=== PATIENT | female | born 1985 | race Caucasian/White ===

== ENCOUNTER 2018-04-19 19:20 | Emergency (ER) | payer OTHER ==
[2018-04-19 19:31] VITALS: BP 118/81; PULSE 91; RESP 16; TEMP 98.5; O2SAT 100
[2018-04-19 21:15] LABS: SQUAMOUS EPITHIAL 1 /hpf (0-5); URINE BILIRUBIN NEGATIVE (NEGATIVE); URINE BLOOD NEGATIVE (NEGATIVE); URINE CLARITY CLEAR (Clear); URINE COLOR STRAW (YELLOW); URINE GLUCOSE (UA) NEG (Normal); URINE LEUKOCYTE ESTERASE TRACE Leu/uL (Negative); URINE PROTEIN NEGATIVE (NEGATIVE); URINE UROBILINOGEN 0.2-1.0 mg/dL (0.2-1.0)
--- NOTE | 2018-04-19 21:15 | ED PDOC ---
HPI: Female Pain Time Seen by Provider: 04/19/18 20:19 Chief Complaint (Nursing): Female Genitourinary Chief Complaint (Provider): pelvic pain History Per: Patient History/Exam Limitations: no limitations Onset/Duration Of Symptoms: Hrs Current Symptoms Are (Timing): Better Severity: Severe Quality Of Discomfort: Cramping Associated Symptoms: denies: Fever, Chills Alleviating Factors: None Additional Complaint(s): 33 y/o Female at 19 weeks with hx of subclinical hypothyroidism on Synthroid since who presents with acute lower pelvic/abdominal pain that occurred a couple of hours ago while walking home from work. She has been having round ligament pain and states that this is much worse and different than that pain. States that is was a little cramp and intermittent. STates dysuria a couple of days ago but none now. Denies vaginal bleeding, abnormal vaginal discharge, N/V, diarrhea. Abnormal Vaginal Bleeding: No Past Medical History Reviewed: Historical Data, Nursing Documentation, Vital Signs Vital Signs: Last Vital Signs Temp 98.5 F 04/19/18 19:30 Pulse 91 H 04/19/18 19:30 Resp 16 04/19/18 19:30 BP 118/81 04/19/18 19:30 Pulse Ox 100 04/19/18 19:30 - Family History Family History: States: Unknown Family Hx - Social History Current smoker - smoking cessation education provided: No - Allergies Allergies/Adverse Reactions: Allergies Allergy/AdvReac Type Severity Reaction Status Date / Time Penicillins Allergy URTICARIA Verified 04/19/18 20:59 Sulfa (Sulfonamide Allergy unknown Verified 04/19/18 20:58 Antibiotics) Review of Systems ROS Statement: Except As Marked, All Systems Reviewed And Found Negative Constitutional: Negative for: Fever, Chills, Sweats Genitourinary Female: Positive for: Dysuria, Pelvic Pain. Negative for: Frequency, Vaginal Discharge, Vaginal Bleeding Physical Exam - Reviewed Nursing Documentation Reviewed: Yes Vital Signs Reviewed: Yes - Physical Exam Appears: Positive for: Uncomfortable Skin: Positive for: Normal Color Neck: Positive for: Supple Cardiovascular/Chest: Positive for: Regular Rate, Rhythm Respiratory: Positive for: Normal Breath Sounds Gastrointestinal/Abdominal: Positive for: Tenderness (suprapubic). Negative for: Guarding, Rebound Pelvic Exam: Positive for: Other (patient refused stating that she would like PATCH SANDER to examine her) Neurologic/Psych: Positive for: Alert, Oriented - ECG O2 Sat by Pulse Oximetry: 100 Medical Decision Making Medical Decision Making: spooler consulted: requesting that patient be sent up to be evaluated in OB for heart monitoring and for contractions. No pelvic exam indicated at this time. Urine dip: small LE U/A and urine culture ordered Patient discharged to present to OB floor for evaluation. Disposition - Clinical Impression Clinical Impression: Pelvic pain during in second trimester, antepartum - Patient ED Disposition Is Patient to be Admitted: No Discussed With DrAlexis: Briseida Gusman Doctor Will See Patient In The: Office Counseled Patient/Family Regarding: Need For Followup - Disposition Disposition: Routine/Home Disposition Time: 21:15 Condition: STABLE Additional Instructions: F/u with PATCH SANDER immediately after discharge for further evaluation of pelvic pain. Forms: [employer] (Lithuanian)
--- NOTE | 2018-04-19 21:59 | OBHP ---
Datetime: 04/19/2018 21:55 IP Adm Impression: , intrauterine IP Chief Complaint Other: lower abdominal pain IP Admit Plan: Observation/Evaluation; Discharge home Admit Comment, IP Provider: Pt is a @ 19+ wks, presents with history of sharp lower abdominal p ain today, no vaginal bleeding, no leaking, some dysuria 2-3 days prior. Patient reported that she mondragon d the sharp pain on both sides of the abdomen, migrated to the lower pelvic region, patient no longer feels the sharp discomfort. Patient denies fever, N/V, diarrhea, any other sick signs/symptoms. Hailey ent on exam has very mild lower abdominal discomfort to deep palpation. UA negative, VSS, no contract ions on the monitor and no signs of chorio. Patient most likely has round ligament pain, discussed di scharge and precautions with patient Pelvic Type - PN: Adequate Extremities - PN: Normal Abdomen - PN: Normal Back - PN: Normal Breast - PN: Normal Lungs - PN: Normal Heart - PN: Normal Thyroid - PN: Normal Neurologic - PN: Normal HEENT - PN: Normal General - PN: Normal FHR - Baseline A Provider: 140s Vital Signs Provider: Reviewed; Within Normal Limits Genitourinary Exam: Normal DTRs - PN: Normal
--- NOTE | 2018-04-19 22:02 | OBDCSUM ---
Datetime: 04/19/2018 21:58 Discharged to, Provider: Home Follow up at, Provider: OB Follow up in weeks, Provider: 3 wks Discharge Diagnosis Prov Other: round ligament pain
== END 2018-04-19 22:30 | disposition home or self-care (01) ==
LOC: H.ER 19:20 → H.EROB2 19:20 → H.ER 21:16 → H.L&D 21:27 → H.EROB2 22:30
DX: O26.92 Pregnancy related conditions, unspecified, second trimester (principal); R10.2 Pelvic and perineal pain; Z3A.19 19 weeks gestation of pregnancy

== ENCOUNTER 2018-09-03 03:43 | Inpatient (IN) | payer OTHER ==
[2018-09-03 05:58] VITALS: BMI 30.9
[2018-09-03] MEDS ORDERED: Lactated Ringer's 1,000 ML IV ONE (06:03)
[2018-09-03 06:14] VITALS: RESP 20
[2018-09-03 06:38] LABS: BASO % 0.3 % (0.0-2.0); EOS # 0.1 K/uL (0.0-0.7); EOS % 0.5 % (0.0-4.0); HEMOGLOBIN 13.6 g/dL (12.0-16.0); LYMPH % 16.4 % (20.0-40.0); MEAN CELL VOLUME 81.4 fl (81.0-99.0); MEAN CORPUSCULAR HEMOGLOBIN 26.9 pg (27.0-31.0); MEAN PLATELET VOLUME 8.9 fl (7.2-11.7); MONO # 0.8 K/uL (0.0-0.8); MONO % 6.3 % (0.0-10.0); NEUT # 9.5 K/uL (1.8-7.0); NEUT % 76.5 % (50.0-75.0); RBC 5.05 Mil/uL (3.80-5.20); RED CELL DISTRIBUTION WIDTH 12.9 % (11.5-14.5); WHITE BLOOD COUNT 12.4 K/uL (4.8-10.8)
--- NOTE | 2018-09-03 14:23 | OBPN ---
Datetime: 09/03/2018 14:20 IP Progress Impression: Rupture of membranes IP Procedures: Sterile Vag Exam IP Progress Plan: Induction Membranes, Provider: Ruptured Amniotic Fluid Color, Provider: Clear FHR - Baseline A Provider: 130's IP Progress Note Comment: 33 yo G1 at 39+ 2 wks w/ spontaneous rupture of membranes FHT reassuring. GBS negaitve Pt may eat regular lunch and then will start pitocin NICHD Accel Fetus A IP Provider: 15X15 FHR Category Provider Fetus A: Category I NICHD Variability Prov Fetus A: Moderate 6-25bpm Dilatation, Provider: 2 Effacement, Provider: 80 Station, Provider: -2 NICHD Decel Fetus A IP Provider: None Datetime: 04/19/2018 21:55 Vital Signs Provider: Reviewed; Within Normal Limits
[2018-09-03] MEDS ORDERED: Oxytocin 30 UNIT in NS 500 ml 30 UNITS/500 ML BAG IV ONE (16:25)
[2018-09-03] MEDS: Lactated Ringer's 1,000 ML IV SCH (17:24)
[2018-09-03] MEDS ORDERED: Bupivacaine HCl 0.5% PF (30 ml) Inj ONE (20:43)
[2018-09-03] MEDS ORDERED: Fentanyl/Bupivacaine HCl 250 ML EPI ONE (20:44)
[2018-09-04] MEDS: Lactated Ringer's 1,000 ML IV SCH ×5 (00:27→19:30)
[2018-09-04] MEDS ORDERED: Oxytocin 30 UNIT in NS 500 ml 30 UNITS/500 ML BAG IV ONE ×3 (09:31→10:58)
--- NOTE | 2018-09-04 10:21 | OBPN ---
Datetime: 09/04/2018 10:00 IP Progress Impression: Reassuring heart rate IP Procedures: Intrauterine Pressure Catheter IP Progress Plan: Augmentation; Anticipate Vaginal Delivery Pool Provider: Positive Membranes, Provider: Ruptured Contraction Comments Provider: irregular FHR - Baseline A Provider: 130 Presentation-Admit: Vertex IP Progress Note Comment: OB Hospitalist note: sign out rec'd. Pt had SROM Sep 03 at 1:30am. She w as admitted Sep 03 6am. She was started on Pitocin Sep 03 at 16:30pm/currently running at 20miu/h. S he rec'd epidural. She was last checked at 12am 3-4cm. She was seen earlier, wanted to eat and hav e epdiural re-evaluated by Dr Prather. SVE 4cm/80/-1 A; Latent phase of labor Prolonged ROM / no sign of chorio Epidural in place PLAN: Discussed condition, labor, pain managent with pt. Her and her 's questions answered . Nurses notified me about the difficulty in obtaining CTX pattern with external tocco - IUPC placed to better monitor CTX pattern/intensity Pitocin was stopped - allowed to eat...will re-start Pitocin NICHD Accel Fetus A IP Provider: [id number] FHR Category Provider Fetus A: Category I NICHD Variability Prov Fetus A: Moderate 6-25bpm Dilatation, Provider: 4 Effacement, Provider: 80 Station, Provider: -1 NICHD Decel Fetus A IP Provider: None
--- NOTE | 2018-09-04 16:24 | OBPN ---
Datetime: 09/04/2018 16:20 IP Progress Impression: Reassuring heart rate IP Procedures: Intrauterine Pressure Catheter IP Progress Plan: Augmentation; Anticipate Vaginal Delivery Membranes, Provider: Ruptured FHR - Baseline A Provider: 130 Presentation-Admit: Vertex IP Progress Note Comment: She feels pressure. Ramy she was noted to be 5cm at 1pm. Bloody show n oted. SVE 5cm No cervical change PLAN: Pitocin at 8miu/h; cont to montior FHR/ labor progress NICHD Accel Fetus A IP Provider: 15X15 FHR Category Provider Fetus A: Category I NICHD Variability Prov Fetus A: Moderate 6-25bpm Dilatation, Provider: 5 Effacement, Provider: 80 Station, Provider: -1 NICHD Decel Fetus A IP Provider: None
[2018-09-04] MEDS ORDERED: Fentanyl/Bupivacaine HCl 250 ML EPI ONE (18:22)
--- NOTE | 2018-09-04 18:44 | OBPN ---
Datetime: 09/04/2018 18:15 IP Progress Impression: Normal progression of labor; Reassuring heart rate IP Progress Plan: Augmentation; Anticipate Vaginal Delivery Pool Provider: Positive Membranes, Provider: Ruptured Amniotic Fluid Color, Provider: Clear Contraction Comments Provider: 2-3m FHR - Baseline A Provider: 130 Presentation-Admit: Vertex IP Progress Note Comment: She feels comfortable. A: Active phase of labor / prolonged ROM PLAN: Pitocin at 10miu/h IUPC in place Montior labor progress NICHD Accel Fetus A IP Provider: 15X15 FHR Category Provider Fetus A: Category I NICHD Variability Prov Fetus A: Moderate 6-25bpm Dilatation, Provider: 6 Effacement, Provider: 80 Station, Provider: -1 NICHD Decel Fetus A IP Provider: None
[2018-09-04] MEDS ORDERED: Clindamycin 600mg/50ml NS 600 MG/50 ML BAG IVPB ONE (21:48)
--- NOTE | 2018-09-04 21:57 | OBPN ---
Datetime: 09/04/2018 21:50 IP Progress Impression: Arrest of dilatation/descent IP Informed Consent Obtain: Section Delivery; Risks, Benefits and Alternatives Discussed IP Progress Plan: Deliver- Section Pool Provider: Positive Membranes, Provider: Ruptured Amniotic Fluid Color, Provider: Clear Contraction Comments Provider: 2-3m FHR - Baseline A Provider: 135 Presentation-Admit: Vertex IP Progress Note Comment: She had CTX q 2m and had Pitocin decreased to 8miu/h then increased again to 10miu/h (current rate). She feels fine SVE no change since exam at 18:15pm IUPC in place CTX q2-3m A: Arrest of dilation PLAN: condition explained to pt and her . They understood. Their queston answered. Info rmed consent form obtained. Prep for NICHD Accel Fetus A IP Provider: 15X15 FHR Category Provider Fetus A: Category I NICHD Variability Prov Fetus A: Moderate 6-25bpm Dilatation, Provider: 6 Effacement, Provider: 80 Station, Provider: -1 NICHD Decel Fetus A IP Provider: None
[2018-09-04] MEDS ORDERED: Lidocaine 2% PF (10 ml) Amp ONE ×2 (22:00→22:01)
[2018-09-04] MEDS ORDERED: Bupivacaine HCl 0.5% PF (30 ml) Inj ONE (22:01)
[2018-09-04] MEDS ORDERED: ePHEDrine 50 mg/ml Inj ONE (22:14)
[2018-09-04] MEDS ORDERED: Phenylephrine 10 mg/ml Inj ONE (22:14)
[2018-09-04] MEDS ORDERED: Midazolam 2 MG/2 ML VIAL ONE (22:36)
[2018-09-04] MEDS ORDERED: Ketamine 50 mg/ml Inj (10 ml) ONE (22:37)
[2018-09-04] MEDS ORDERED: Morphine 5 mg/10 ml preservative-free Inj(Duramorph) ONE (22:57)
[2018-09-04] MEDS: OXYTOCIN/0.9 % NS 20 UNIT/1,000 ML BAG IV SCH (23:12)
[2018-09-04] MEDS ORDERED: Oxycodone/Acetaminophen 5/325 mg Tab PO PRN ×2 (23:22)
[2018-09-05] MEDS ORDERED: Oxycodone/Acetaminophen 5/325 mg Tab PO PRN ×2 (00:46→02:35)
[2018-09-05] MEDS: OXYTOCIN/0.9 % NS 20 UNIT/1,000 ML BAG IV SCH (06:34)
[2018-09-05 07:59] LABS: HEMOGLOBIN 11.2 g/dL (12.0-16.0); MEAN CELL VOLUME 81.9 fl (81.0-99.0); MEAN CORPUSCULAR HEMOGLOBIN 26.8 pg (27.0-31.0); MEAN CORPUSCULAR HGB CONC 32.8 g/dL (33.0-37.0); RBC 4.19 Mil/uL (3.80-5.20); WHITE BLOOD COUNT 15.7 K/uL (4.8-10.8)
[2018-09-05] MEDS: Multivitamin With Minerals Tab PO SCH (07:59)
[2018-09-05] MEDS ORDERED: Multivitamin With Minerals Tab PO SCH (09:00)
--- NOTE | 2018-09-05 10:25 | OBDS ---
DELIVERY PERSONNEL Delivery Doctor: Elkin Solano DO (Annotations: Data stored by [facility] on behalf of user) Die Casting Machine Operator: Sherry Segovia RN Anesthesiologist: Antonietta Caruso MD MATERNAL INFORMATION Delivery Anesthesia: Epidural Medications in Delivery: pitocin Estimated Blood Loss (ml): 800 (Annotations: Data stored by [facility] on behalf of user) Placenta Cultured: No Maternal Complications: None Other Maternal Complications: none RN Comments: pt tolerated the procedure well Provider Comments: Pre Op Dx IUP at term/failure to dilate/prolonged ROM Post Op Dx same Procedure: Primary LTCS via Pfannenstiel incision Surgeon Dr Russ Fitzpatrick epidural/IV sedation Operative findings: -Live infant delivered from [facility] presentation - 9,9 -Clear AF -Placenta delivered intact manually -Ovaries and tubes WNL grossly -All equip, pads and needles accounted for -she remained stable EBL 800cc LABOR SUMMARY EDC: 09/08/2018 00:00 EDC: 09/08/2018 00:00 No. Babies in Womb: 1 Attempted: No Labor Anesthesia: Epidural LABOR INFORMATION Onset of Labor: 09/03/2018 01:30 Cervical Ripening Agents: Patient educated on cervidil as a cervical ripening agent. aware this med ication may be recommended by MD to start preparing cervic for labor. Patient made aware medication is placed on cervix and hormones are released in a time release process. Cervidil normally remains i n cervix for 12 hours. Patient verbalized understadnign. Cervical Ripening Agents: Patient educated on cervidil as a cervical ripening agent. aware this med ication may be recommended by MD to start preparing cervic for labor. Patient made aware medication is placed on cervix and hormones are released in a time release process. Cervidil normally remains i n cervix for 12 hours. Patient verbalized understadnign. Cervical Ripening Agents: Patient educated on cervidil as a cervical ripening agent. aware this med ication may be recommended by MD to start preparing cervic for labor. Patient made aware medication is placed on cervix and hormones are released in a time release process. Cervidil normally remains i n cervix for 12 hours. Patient verbalized understadnign. Cervical Ripening Agents: Patient educated on cervidil as a cervical ripening agent. aware this med ication may be recommended by MD to start preparing cervic for labor. Patient made aware medication is placed on cervix and hormones are released in a time release process. Cervidil normally remains i n cervix for 12 hours. Patient verbalized understadnign. Group B Beta Strep: Negative Antibiotics Time of Last Dose: gentamycin 100 mg at 2230 Steroids Given: None Reason Steroids Not Administered: Not Applicable MEMBRANES Membranes Rupture Method: Spontaneous Membranes Rupture Method: Spontaneous Membranes Rupture Method: Spontaneous Membranes Rupture Method: Spontaneous Membranes Rupture Method: Spontaneous Membranes Rupture Method: Spontaneous Membranes Rupture Method: Spontaneous Membranes Rupture Method: Spontaneous Rupture of Membranes: 09/03/2018 01:30 Rupture of Membranes: 09/03/2018 01:30 Rupture of Membranes: 09/03/2018 01:30 Length of Rupture (hrs): 45.18 Length of Rupture (hrs): 45.18 Length of Rupture (hrs): 45.18 Amniotic Fluid Color: Clear Amniotic Fluid Color: Clear Amniotic Fluid Color: Clear Amniotic Fluid Color: Clear Amniotic Fluid Color: Clear Amniotic Fluid Color: Clear Amniotic Fluid Color: Clear Amniotic Fluid Color: Clear Amniotic Fluid Color: Clear Amniotic Fluid Color: Clear Amniotic Fluid Color: Clear Amniotic Fluid Color: Clear Amniotic Fluid Amount: Small Amniotic Fluid Amount: Small Amniotic Fluid Odor: Normal Amniotic Fluid Odor: Normal Amniotic Fluid Odor: Normal Amniotic Fluid Odor: Normal Amniotic Fluid Odor: Normal Amniotic Fluid Odor: Normal Amniotic Fluid Odor: None Amniotic Fluid Odor: Normal Amniotic Fluid Odor: Normal STAGES OF LABOR Stage 3 hrs: 0 Stage 3 min: 1 Total Time in Labor hrs: 45 Total Time in Labor min: 12 CSECTION DELIVERY Other Primary Indication: failure to progress Secondary Indication: Other Other Secondary Indication: prolonged rupture of amniotic fluid CSection Urgency: Non Elective CSection Incidence: Primary Labor: Labor Elective: Nonelective CSection Incision: Lower Uterine Transverse Uterine Closure: Double-layer closure BABY A INFORMATION Delivery Date/Time: 09/04/2018 22:41 Method of Delivery: Born in Route : No : N/A Forceps: N/A Vacuum Extraction: Successful Shoulder Dystocia : Yes ASSISTED DELIVERY BABY A Catheter Prior to Procedure: Yes Vacuum Number of Pulls: 1 Vacuum Number of PopOffs: 0 Reduce Pressure btwn Ctx: No Vacuum Yard Labor Supervisor: [employer] Total Time Vacuum Applied: 15 seconds SHOULDER DYSTOCIA BABY A Infant Delivery Date/Time: 09/04/2018 22:41 PRESENTATION/POSITION BABY A Presentation: Cephalic Cephalic Presentation: Vertex Vertex Position: Left Occipital Anterior Breech Presentation: N/A PLACENTA INFORMATION BABY A Placenta Delivery Time : 09/04/2018 22:42 Placenta Method of Delivery: Manual Removal Placenta Status: Delivered SCORES BABY A Heart Rate 1 min: >100 bpm Resp Effort 1 min: Good Cry Reflex Irritability 1 min: Cough or Sneeze or Pulls Away Muscle Tone 1 min: Active Motion Color 1 min: Body [place], Extremities Blue Resuscitation Effort 1 min: Tactile Stimulation SCORE 1 MIN: 9 Heart Rate 5 min: >100 bpm Resp Effort 5 min: Good Cry Reflex Irritability 5 min: Cough or Sneeze or Pulls Away Muscle Tone 5 min: Active Motion Color 5 min: Body [place], Extremities Blue Resuscitation Effort 5 min: N/A SCORE 5 MIN: 9 INFANT INFORMATION BABY A Gestational Age at Delivery: 39.0 Gestational Status: Term Outcome : Liveborn Condition : Stable Infant Sex: Male IDENTIFICATION/MEDS BABY A ID Band Number: [id number] ID Band Location: Left Leg; Left Arm Vitamin K Given : Aquamephyton 1 mg IM Erythromycin Given: Given Both Eyes WEIGHT/LENGTH BABY A Infant Birthweight (gms): 3030 Weight (lb): 6 Weight (oz): 11 CORD INFORMATION BABY A No. Cord Vessels: 3 Nuchal Cord : N/A Cord Blood Taken: Yes Infant Suction: Mouth; Nose ASSESSMENT BABY A Complications: None Physical Findings at Delivery: Within Normal Limits Respirations: Appears Normal Behavioral Health Clinician/ALS Called : No Care By: Diana Hernandez RN/ Dr. Alonzo Transferred To: Remains with Mother RESUSCITATION BABY A Resuscitation Effort: Tactile Stimulation
--- NOTE | 2018-09-05 10:26 | OBDS ---
DELIVERY PERSONNEL Delivery Doctor: Elkin Solano DO (Annotations: Data stored by [facility] on behalf of user) Children'S Literature Professor: Sherry Segovia RN Anesthesiologist: Antonietta Caruso MD MATERNAL INFORMATION Delivery Anesthesia: Epidural Medications in Delivery: pitocin Estimated Blood Loss (ml): 800 (Annotations: Data stored by [facility] on behalf of user) Placenta Cultured: No Maternal Complications: None Other Maternal Complications: none RN Comments: pt tolerated the procedure well Provider Comments: Pre Op Dx IUP at term/failure to dilate/prolonged ROM Post Op Dx same Procedure: Primary LTCS via Pfannenstiel incision Surgeon Dr Russ Fitzpatrick epidural/IV sedation Operative findings: -Live infant delivered from [facility] presentation - 9,9 -Clear AF -Placenta delivered intact manually -Ovaries and tubes WNL grossly -All equip, pads and needles accounted for -she remained stable EBL 800cc LABOR SUMMARY EDC: 09/08/2018 00:00 No. Babies in Womb: 1 Attempted: No Labor Anesthesia: Epidural LABOR INFORMATION Onset of Labor: 09/03/2018 01:30 Cervical Ripening Agents: Patient educated on cervidil as a cervical ripening agent. aware this med ication may be recommended by MD to start preparing cervic for labor. Patient made aware medication is placed on cervix and hormones are released in a time release process. Cervidil normally remains i n cervix for 12 hours. Patient verbalized understadnign. Group B Beta Strep: Negative Antibiotics Time of Last Dose: gentamycin 100 mg at 2230 Steroids Given: None Reason Steroids Not Administered: Not Applicable MEMBRANES Membranes Rupture Method: Spontaneous Rupture of Membranes: 09/03/2018 01:30 Length of Rupture (hrs): 45.18 Amniotic Fluid Color: Clear Amniotic Fluid Amount: Small Amniotic Fluid Odor: Normal STAGES OF LABOR Stage 3 hrs: 0 Stage 3 min: 1 Total Time in Labor hrs: 45 Total Time in Labor min: 12 CSECTION DELIVERY Other Primary Indication: failure to progress Secondary Indication: Other Other Secondary Indication: prolonged rupture of amniotic fluid CSection Urgency: Non Elective CSection Incidence: Primary Labor: Labor Elective: Nonelective CSection Incision: Lower Uterine Transverse Uterine Closure: Double-layer closure BABY A INFORMATION Infant Delivery Date/Time: 09/04/2018 22:41 Method of Delivery: Born in Route : No : N/A Forceps: N/A Vacuum Extraction: Successful Shoulder Dystocia : Yes ASSISTED DELIVERY BABY A Catheter Prior to Procedure: Yes Vacuum Number of Pulls: 1 Vacuum Number of PopOffs: 0 Reduce Pressure btwn Ctx: No Vacuum Loaf Counter: [place] Total Time Vacuum Applied: 15 seconds SHOULDER DYSTOCIA BABY A Infant Delivery Date/Time: 09/04/2018 22:41 PRESENTATION/POSITION BABY A Presentation: Cephalic Cephalic Presentation: Vertex Vertex Position: Left Occipital Anterior Breech Presentation: N/A PLACENTA INFORMATION BABY A Placenta Delivery Time : 09/04/2018 22:42 Placenta Method of Delivery: Manual Removal Placenta Status: Delivered SCORES BABY A Heart Rate 1 min: >100 bpm Resp Effort 1 min: Good Cry Reflex Irritability 1 min: Cough or Sneeze or Pulls Away Muscle Tone 1 min: Active Motion Color 1 min: Body [place], Extremities Blue Resuscitation Effort 1 min: Tactile Stimulation SCORE 1 MIN: 9 Heart Rate 5 min: >100 bpm Resp Effort 5 min: Good Cry Reflex Irritability 5 min: Cough or Sneeze or Pulls Away Muscle Tone 5 min: Active Motion Color 5 min: Body [place], Extremities Blue Resuscitation Effort 5 min: N/A SCORE 5 MIN: 9 INFORMATION BABY A Gestational Age at Delivery: 39.0 Gestational Status: Term Outcome : Liveborn Infant Condition : Stable Sex: Male IDENTIFICATION/MEDS BABY A ID Band Number: [id number] ID Band Location: Left Leg; Left Arm Vitamin K Given : Aquamephyton 1 mg IM Erythromycin Given: Given Both Eyes WEIGHT/LENGTH BABY A Birthweight (gms): 3030 Weight (lb): 6 Weight (oz): 11 CORD INFORMATION BABY A No. Cord Vessels: 3 Nuchal Cord : N/A Cord Blood Taken: Yes Infant Suction: Mouth; Nose ASSESSMENT BABY A Infant Complications: None Physical Findings at Delivery: Within Normal Limits Infant Respirations: Appears Normal Wire Stitcher Operator/ALS Called : No Care By: Diana Hernandez RN/ Dr. Alonzo Transferred To: Remains with Mother RESUSCITATION BABY A Resuscitation Effort: Tactile Stimulation
--- NOTE | 2018-09-05 10:29 | OBPPN ---
Datetime: 09/05/2018 10:25 PP Pain Prov: Within normal limits PP Nausea Prov: Denies PP Flatus Prov: No PP BM Prov: No PP Breasts Prov: Normal PP Heart Prov: Normal PP Lungs Prov: Normal PP Abdomen/Uterus Prov: Normal PP Lochia Prov: Normal PP Vulva/Perineum Prov: Normal PP CVA Tenderness Prov: Normal PP Extremities Prov: Normal PP C/S Incision Prov: Normal PP Progress Prov: Normal PP Impression Prov: Normal progression PP Progress Note Prov: She feels some incisional pain; otherwise no problems H/H A; S/P C/S day 1 (failure of dilation/active phase) PLAN: cont post op care Vital Signs Provider PP: Reviewed Vital Signs Provider Details PP: pulse 103
[2018-09-05] MEDS: Oxycodone/Acetaminophen 5/325 mg Tab PO PRN (12:22)
[2018-09-06] MEDS: Oxycodone/Acetaminophen 5/325 mg Tab PO PRN (04:37)
[2018-09-06] MEDS: Multivitamin With Minerals Tab PO SCH (08:16)
--- NOTE | 2018-09-06 11:44 | OBPPN ---
Datetime: 09/06/2018 11:40 PP Pain Prov: Within normal limits PP Nausea Prov: Denies PP Flatus Prov: Yes PP Breasts Prov: Normal PP Heart Prov: Normal PP Lungs Prov: Normal PP Abdomen/Uterus Prov: Normal PP Lochia Prov: Normal PP Vulva/Perineum Prov: Normal PP CVA Tenderness Prov: Normal PP Extremities Prov: Normal PP Comments Phys Exam Prov: FUndus firm under umbilicus PP Impression Prov: Normal progression PP Plan Prov: Continue present management PP Progress Note Prov: Patient denies CP, no SOB, no N/V, tolerating PO diet, ambulating/voidign wel l, mild lochia, abodminal pain tolerable, +flatus A/P 1. COntinue order 2. COntinue and ambulating IP PP Procedures: None Vital Signs Provider PP: Reviewed; Within Normal Limits
--- NOTE | 2018-09-07 06:55 | OBPPN ---
Datetime: 09/07/2018 06:47 PP Pain Prov: Within normal limits PP Nausea Prov: Denies PP Flatus Prov: Yes PP BM Prov: Yes PP Breasts Prov: Normal PP Heart Prov: Normal PP Lungs Prov: Normal PP Abdomen/Uterus Prov: Normal PP Lochia Prov: Normal PP Vulva/Perineum Prov: Normal PP CVA Tenderness Prov: Normal PP Extremities Prov: Normal PP C/S Incision Prov: Normal PP Progress Prov: Normal PP Impression Prov: Normal progression PP Plan Prov: Discharge PP Progress Note Prov: She feels better today H/H A: S/P day 3 PLAN: will discharge home and follow up in 1-2w Vital Signs Provider PP: Reviewed; Within Normal Limits
--- NOTE | 2018-09-07 07:55 | OBDCSUM ---
Datetime: 09/07/2018 07:54 Discharged to, Provider: Home Follow up at, Provider: Aleksandr Disch Instr Activity: Normal activity Disch Instr Diet: Regular Discharge Instructions, Provider: Routine instructions given Discharge Diagnosis, Provider: Term Delivered Follow up in weeks, Provider: 1-2w Disch Referrals: None Contraception discussed, Prov: Yes Disch Activity Restrictions: No sexual activity; Nothing in vagina - [place], tampons, douche
[2018-09-07] MEDS: Multivitamin With Minerals Tab PO SCH (08:31)
[2018-09-07 22:53] VITALS: BP 111/59; PULSE 68; TEMP 97.9; O2SAT 99
--- NOTE | 2018-09-09 08:23 | OP ---
PROCEDURE DATE: 09/04/2018 PREOPERATIVE DIAGNOSES: 1. Intrauterine at term. 2. Failure to dilate. 3. Prolonged rupture of membranes. POSTOPERATIVE DIAGNOSES: 1. Intrauterine at term. 2. Failure to dilate. 3. Prolonged rupture of membranes. PROCEDURE: Primary low-transverse section via Pfannenstiel incision. SURGEON: Adam Solano DO. DOCTOR NATUROPATHIC: Joel Schmitz MD (Dr. Joel Schmitz is the primary OB provider who came in to assist on this case. His presence was necessary and vital for the procedure. He was present from the time of the skin incision to the delivery of the to the skin closure. There was no surgical dressing maker available). ANESTHESIOLOGIST: Gurmeet Caruso MD. ANESTHESIA: Epidural and deep IV sedation. OPERATIVE FINDINGS: Live infant delivered from the cephalic presentation. Apgars score 9 and 9 given at 1 and 5 minutes respectively. Clear amniotic fluid noted. Placenta was delivered intact manually. Ovaries and tubes appeared to be within normal limits grossly. All equipments, lap pads, sponges, and needles were accounted for. She remained hemodynamically stable throughout the procedure. ESTIMATED BLOOD LOSS: 800 mL. DESCRIPTION OF PROCEDURE: The patient was brought to the operating room. She already had a catheter in place draining clear urine. She already had the epidural catheter in place. Compression boots were placed on both lower extremities. She was placed in a supine position. She was draped and prepped in usual sterile manner. Once confirmation of adequate anesthesia was obtained, Pfannenstiel incision was made using a scalpel. This incision was then taken down to the underlying fascia using electrocautery. The fascia was nicked in the midline and extended bilaterally using electrocautery. The inferior aspect of the fascia was grasped using 2 Alex clamps, tented up, and the rectus muscle was both bluntly and sharply dissected using electrocautery. The same was done with the superior aspect of the fascia. In the midline superiorly, the rectus muscle was bluntly, and peritoneum was identified and entered bluntly. The incision was then extended superiorly and inferiorly with direct visualization of the bladder and intestines. She was noted to be very uncomfortable. Once we entered the peritoneal layer, decision was made to give IV sedation. Once she was comfortable, bladder blade was then inserted. Bladder flap was created by incising peritoneum above the bladder line using Metzenbaum scissors and extending bilaterally. A bladder flap was created digitally. Bladder blade was then inserted behind the bladder flap. A low-transverse incision was made using a scalpel. Upon entering the uterus, clear amniotic fluid was noted. The incision was then extended bilaterally using bandage scissors. First, attempt was made to deliver the 's head. When this was not successful, we extended the skin incision as well as the peritoneal incision. Also, rectus muscle was cut using bandage scissors bilaterally. Attempt was made to deliver and decision was made to use Kiwi vacuum. This was applied once, less than 1 minute, and vacuum assistance was done to deliver the infant's head. This was removed and then remainder of the was then delivered atraumatically as possible. Infant was crying spontaneously. Cord was clamped and cut. was handed to the building architect in attendance. Cord bloods were sent. Placenta was delivered intact manually. Uterus was then exteriorized, cleared of debris and clots. Good contracted uterus was noted. 0 Vicryl suture was used to close the first layer of the uterus in interlocking fashion, second layer of the uterus was closed using 0 Vicryl suture imbricating the first layer. Good hemostasis was assured. Copious irrigation was performed in the posterior cul-de-sac. The uterus was placed back into the peritoneal cavity. Irrigation was performed. All equipments were removed and accounted for. Lower uterine segment was noted to have good hemostasis. 0 Vicryl suture was then used to close the peritoneal layer in a running fashion. Rectus muscle was noted to have good hemostasis. Rectus muscle was approximated using 0 Vicryl suture x2 bilaterally. Thereafter, 0 Vicryl suture was used to approximate the fascial layer in a running fashion. Irrigation was performed. A 2-0 plain suture was used to approximate the subcuticular layer. Hemostasis is being assured. A 3-0 Vicryl suture was used to approximate the skin. Dermabond, Steri-Strips, and pressure bandages were applied. She tolerated the procedure well and was transferred to the recovery room in stable condition. Adam Solano DO [facility] # [id number]
== END 2018-09-07 16:30 | disposition home or self-care (01) | DRG 788 ==
LOC: H.EROB2 03:43 → H.L&D 06:03 → H.OB/GYN 09-04 18:31 → H.L&D 09-04 18:32 → H.OB/GYN 09-05 02:15
PROVIDERS: ADMIT Obstetrics & Gynecology; ATTEND Obstetrics & Gynecology
PROC: 4A1HXCZ Monitoring of Products of Conception, Cardiac Rate, External Approach (ICD-10-PCS; 2018-09-03)
PROC: 10D00Z1 Extraction of Products of Conception, Low, Open Approach (ICD-10-PCS; principal; 2018-09-04)
DX: O66.0 Obstructed labor due to shoulder dystocia (principal); O62.0 Primary inadequate contractions; Z3A.39 39 weeks gestation of pregnancy; Z37.0 Single live birth; Z88.0 Allergy status to penicillin; Z88.2 Allergy status to sulfonamides